=== PATIENT | male | born 1940 | race Caucasian/White ===

== ENCOUNTER 2018-06-26 11:00 | Inpatient (IN) ==
[2018-06-26] MEDS ORDERED: 0.9 % Sodium Chloride 1,000 ML IVC ONE (11:59)
[2018-06-26 12:03] LABS: Basophils % 0.4 %; Eosinophils # 0.2 K/mcL (0.0-0.6); Eosinophils % 2.3 %; Hemoglobin 13.3 g/dL (12.9-16.9); Immature Granulocytes % 0.4 % (0-4); Lymphocytes # 1.4 K/mcL (0.6-4.6); Lymphocytes % 14.8 %; Mean Corpuscular Hemoglobin 29.4 pg (28.0-33.3); Mean Corpuscular Volume 84.1 fL (83.0-100.0); Mean Platelet Volume 10.1 fL (9.4-12.4); Monocytes # 0.7 K/mcL (0.0-1.3); Monocytes % 7.8 %; Neutrophils # 6.8 K/mcL (1.6-8.9); Platelet Count 218 K/mcL (140-400); Red Blood Count 4.52 M/mcL (4.19-5.50); Red Cell Distribution Width 13.4 % (11.5-14.5); Segmented Neutrophils % 74.3 %
[2018-06-26 12:22] LABS: Albumin 3.8 g/dL (3.5-5.7); Albumin/Globulin Ratio 1.2 (1.1-2.2); Bilirubin,Total 0.5 mg/dL (0.3-1.0); Calcium 8.8 mg/dL (8.6-10.3); Globulin 3.1 g/dL (2.4-3.5); Potassium 2.6 mEq/L (3.5-5.1); Total Protein 6.9 g/dL (6.4-8.9)
--- NOTE | 2018-06-26 12:30 | Emergency Department Note ---
Disposition Clinical Impression: YOSELIN (acute kidney injury), Hypokalemia Diarrhea Qualifiers: Diarrhea type: unspecified type Qualified Code(s): R19.7 - Diarrhea, unspec ified Disposition: Admitted As Inpatient Condition: Good Referrals: Lashanda Martinez DO [Primary Care Provider] - Forms: ED Satisfaction Letter General Adult HPI - General Chief complaint: ED Recheck/Abnormal Lab/Rx Stated complaint: abnormal lab Time Seen by Provider: 06/26/18 11:11 Source: patient Mode of arrival: ambulatory Limitations: no limitations Nursing Notes Reviewed: Yes Vital Signs Reviewed: Yes - History of Present Illness HPI Narrative: Patient presenting for evaluation of abnormal labs. Patient has had he describes as diarrhea 10-15 episodes daily without blood for the last 3 weeks. Patient has not had any associated focal abdominal pain. Describes intermittent cramping. The patient was seen by his PCP and treated conservatively. Patient with continued symptoms and lab work. Lab work shows worsening see Marianne with associated hypokalemia of 2.6. At this time the patient denies chest pain, shortness of breath, syncope. Patient does have lightheadedness with standing up. Pain Scale: 0 - Related Data Home Medications Medication Instructions Recorded Confirmed Losartan/HCTZ [Hyzaar 50-12.5 1 each PO BID 12/20/15 12/17/16 Tablet] Tamsulosin [Flomax] 0.4 mg PO DAILY 12/20/15 12/17/16 Aspirin Enteric Coated [Aspirin EC] 81 mg PO DAILY 12/17/16 12/17/16 Carvedilol 3.125 mg PO DAILY 12/17/16 12/17/16 Previous Rx's Medication Instructions Recorded Folic Acid 1 tab PO DAILY #30 tablet 10/15/16 LORazepam [Ativan] 1 mg PO BID #60 tablet 12/17/16 Sertraline [Zoloft] 100 mg PO DAILY #30 tablet 12/17/16 Allergies Allergy/AdvReac Type Severity Reaction Status Date / Time No Known Allergies Allergy Verified 12/17/16 09:57 All systems ED: reviewed and negative except as stated. Review of Systems: As Per HPI Constitutional: Reports: weakness (Generalized). Denies: fever, chills Cardiovascular: Denies: chest pain, palpitations Respiratory: Denies: cough, dyspnea Gastrointestinal: Reports: abdominal pain (Cramping), diarrhea. Denies: nausea, vomiting Genitourinary: Denies: urgency, dysuria Musculoskeletal: Denies: back pain Endocrine: Reports: fatigue Past Medical History - Past Medical History Medical history: Reports: cancer, hypertension Surgical history: Reports: cataract, cholecystectomy Psychiatric history: Reports: anxiety, depression - Social History Smoking Status: Never smoker Smokeless Tobacco Status: No Alcohol use: Reports: none Physical Exam General: Well appearing, nontoxic, no acute distress Head: Normocephalic Atraumatic Eyes: PERRL, EOMI ENT: Airway patent, no stridor Neck: supple, no meningismus Chest: Lungs clear to auscultation bilateral Cardiac: Regular rate and rhythm, no murmurs, rubs or gallops Abdomen: soft, nontender, nondistended; no guarding, rebound, or tenderness to percussion Musculoskeletal: Calves symmetric, nontender. Skin: No rash, normal skin tone. Neuro: Alert and Oriented to person, place, and time; No obvious focal deficit. Course - Reevaluation(s) Reevaluation #1: Patient with no significant EKG changes. Hypokalemia, a chaotic, fluids and potassium have been given. At this time given the patient's failed outpatient treatment and need for continued further investigation. GI panel has been ordered. Patient will undergo continued left leg replacement as well as IV hydration and be admitted to the hospitalist service for further evaluation and management. - Consultations Consultation #1: Discussed with Dr. Barksdale. Patient accepted for admission. Vital Signs Temperature 97.4 F L 06/26/18 11:02 Pulse Rate 59 06/26/18 11:02 Respiratory Rate 16 06/26/18 11:02 Blood Pressure 131/73 06/26/18 11:02 O2 Sat by Pulse Oximetry 100 06/26/18 11:02 Temperature 97.4 F L 06/26/18 11:02 Pulse Rate 51 06/26/18 12:30 Respiratory Rate 16 06/26/18 12:30 Blood Pressure 114/63 06/26/18 12:30 O2 Sat by Pulse Oximetry 96 06/26/18 11:17 Oxygen Delivery Oxygen Delivery Room Air Medical Decision Making - Lab Data Result diagrams: 06/26/18 11:52 06/26/18 11:52 Lab Results 06/26/18 06/26/18 Range/Units 11:52 11:52 WBC 9.1 (4.3-11.1) K/mcL RBC 4.52 (4.19-5.50) M/mcL Hgb 13.3 (12.9-16.9) g/dL Hct 38.0 (37.5-50.1) % MCV 84.1 (83.0-100.0) fL MCH 29.4 (28.0-33.3) pg MCHC 35.0 (31.6-35.5) g/dL RDW 13.4 (11.5-14.5) % Plt Count 218 (140-400) K/mcL MPV 10.1 (9.4-12.4) fL Immature Gran % 0.4 (0-4) % Seg Neutrophils % 74.3 % Lymphocytes % 14.8 % Monocytes % 7.8 % Eosinophils % 2.3 % Basophils % 0.4 % Neutrophils # 6.8 (1.6-8.9) K/mcL Lymphocytes # 1.4 (0.6-4.6) K/mcL Monocytes # 0.7 (0.0-1.3) K/mcL Eosinophils # 0.2 (0.0-0.6) K/mcL Basophils # 0.0 (0.0-0.2) K/mcL Sodium 137 (136-145) mEq/L Potassium 2.6 L (3.5-5.1) mEq/L Chloride 110 H (98-107) mEq/L Carbon Dioxide 24 (23-29) mEq/L BUN 50 H (8-23) mg/dL Creatinine 2.34 H (0.70-1.30) mg/dL Est GFR ( Amer) 33 L (> 60) Est GFR (Non-Af Amer) 27 L (> 60) BUN/Creatinine Ratio 21 (6-26) Glucose 100 (70-105) mg/dL Calculated Osmolality 297 (280-300) Calcium 8.8 (8.6-10.3) mg/dL Total Bilirubin 0.5 (0.3-1.0) mg/dL AST 11 L (13-39) Units/L ALT 7 (7-52) Units/L Alkaline Phosphatase 71 (34-104) Units/L Serum Total Protein 6.9 (6.4-8.9) g/dL Albumin 3.8 (3.5-5.7) g/dL Globulin 3.1 (2.4-3.5) g/dL Albumin/Globulin Ratio 1.2 (1.1-2.2)
--- NOTE | 2018-06-26 13:47 | Internal Med History&Physical ---
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 Patient reports of having diarrhea for approximately 3 weeks and was seen by primary care provider for evaluation who obtained labs. Patient was found to be hypokalemic and was directed to the ER for further evaluation. In the ER, patient was found to have a potassium 2.6 with a creatinine of 2.34 (baseline approximately 1.5). Stool cultures were obtained from the ER and patient was given 40 mEq of potassium chloride by mouth in addition to a liter of fluid intravenously. Patient will be admitted to the observation unit for hypokalemia and acute on chronic renal disease secondary to dehydration from diarrhea. Past Med Surg Social Fam HX - Past Medical History Medical history: cancer, hypertension Additional medical history: CKD, melanoma Psychiatric history: anxiety, depression - Past Surgical History Surgical History: cataract, cholecystectomy Additional surgical history: PEG, PEG removal, hroat ca sx, L arm surgery - Social History Smoking Status: Never smoker Smokeless Tobacco Status: No Alcohol use: none - Additional Family History Additional family history: Sister: Colon cancer. Mom: Pancreatic cancer Internal Medicine - H&P: Meds Losartan/HCTZ [Hyzaar 50-12.5 Tablet] 1 each PO BID 12/20/15 [History] Tamsulosin [Flomax] 0.4 mg PO DAILY 12/20/15 [History] Folic Acid 1 tab PO DAILY #30 tablet 10/15/16 [Rx] Aspirin Enteric Coated [Aspirin EC] 81 mg PO DAILY 12/17/16 [History] Carvedilol 3.125 mg PO DAILY 12/17/16 [History] LORazepam [Ativan] 1 mg PO BID #60 tablet 12/17/16 [Rx] Sertraline [Zoloft] 100 mg PO DAILY #30 tablet 12/17/16 [Rx] Allergy/AdvReac Type Severity Reaction Status Date / Time No Known Allergies Allergy Verified 12/17/16 09:57 All Systems PM: A 10-system review of systems was performed and is negative for pertinent findings except as documented above in the HPI. - Constitutional Vitals: Temp Pulse Resp BP Pulse Ox 97.4 F L 86 16 124/58 96 06/26/18 11:02 06/26/18 13:38 06/26/18 13:38 06/26/18 13:38 06/26/18 13:38 General appearance: Present: A&O X 3, no acute distress Exam: As above - Head Head exam: Present: normocephalic - Eye Eye exam: Present: normal appearance - ENT ENT exam: Present: mucous membranes moist - Respiratory Respiratory exam: Present: CTAB. Absent: accessory muscle use, rales, rhonchi, wheezes - Cardiovascular Cardiovascular exam: Present: RRR, +S1, +S2. Absent: diastolic murmur, gallop, rubs, systolic murmur - GI/Abdominal GI/Abdominal exam: Present: normal bowel sounds, soft, no peritoneal signs. Absent: distended, tenderness - Extremities Exam Extremities exam: Absent: pedal edema - Neurological Exam Neurological exam: Present: oriented X3 - Psychiatric Psychiatric exam: Present: normal mood - Skin Skin exam: Present: normal color Internal Med - H&P Results - Labs CBC & Chem 7: 06/26/18 11:52 06/26/18 11:52 Labs: Short CBC 06/26/18 Range/Units 11:52 WBC 9.1 (4.3-11.1) K/mcL Hgb 13.3 (12.9-16.9) g/dL Hct 38.0 (37.5-50.1) % Plt Count 218 (140-400) K/mcL Neutrophils # 6.8 (1.6-8.9) K/mcL BMP 06/26/18 11:52 Sodium 137 Potassium 2.6 L Chloride 110 H Carbon Dioxide 24 BUN 50 H Creatinine 2.34 H Glucose 100 Calcium 8.8 Liver Function 06/26/18 Range/Units 11:52 Total Bilirubin 0.5 (0.3-1.0) mg/dL AST 11 L (13-39) Units/L ALT 7 (7-52) Units/L Alkaline Phosphatase 71 (34-104) Units/L Albumin 3.8 (3.5-5.7) g/dL - Assessment and plan (1) Hypokalemia Current Visit: Yes Status: Acute Assessment and plan: In the ER, patient was found to have a potassium 2.6. Will give patient a K rider and recheck potassium early evening (2) Diarrhea Current Visit: Yes Status: Acute Assessment and plan: Patient reports a three-week history of diarrhea. Stool cultures ordered in the ER and pending Qualifiers: Diarrhea type: unspecified type Qualified Code(s): R19.7 - Diarrhea, unspecified (3) Acute kidney injury superimposed on CKD Current Visit: Yes Status: Acute Assessment and plan: In the ER, patient was found to have a creatinine of 2.34 (baseline approximately 1.5). Will continue IV fluids and reevaluate creatinine in the a.m. 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
[2018-06-26] MEDS ORDERED: Naloxone 0.4 MG/ML INJ IVP PRN (13:58)
[2018-06-26] MEDS ORDERED: Potassium Chloride 40 MEQ, Lidocaine 1% 2 ML in D5% in Water 500 ML IVPB ONE (14:13)
[2018-06-26] MEDS: 0.9 % Sodium Chloride 1,000 ML IVC SCH (15:06)
[2018-06-26 18:05] LABS: C.difficile Toxin A/B Gene PCR Not detected (Not detect); Campylobacter by PCR Not detected (Not detect); Plesiomonas shigelloides PCR Not detected (Not detect); Salmonella PCR Not detected (Not detect); Vibrio PCR Not detected (Not detect)
[2018-06-26 18:06] LABS: Adenovirus F 40/41 PCR Not detected (Not detect); Astrovirus PCR Not detected (Not detect); Cryptosporidium by PCR Not detected (Not detect); Cyclospora cayetanensis PCR Not detected (Not detect); E. coli O157 by PCR Not detected (Not detect); Entamoeba histolytica PCR Not detected (Not detect); Enteroaggregative E.coli(EAEC) Not detected (Not detect); Enteropathogenic E.coli(EPEC) Not detected (Not detect); Enterotoxigenic E.coli (ETEC) Not detected (Not detect); Giardia lamblia PCR Not detected (Not detect); Norovirus GI/GII PCR Not detected (Not detect); Rotavirus A PCR Not detected (Not detect); Sapovirus PCR Not detected (Not detect); Shig/EnteroinvasiveE coli EIEC Not detected (Not detect); Shigalike tox-prod E coli STEC Not detected (Not detect); Vibrio cholerae PCR Not detected (Not detect); Yersinia enterocolitica PCR Not detected (Not detect)
[2018-06-27] MEDS: 0.9 % Sodium Chloride 1,000 ML IVC SCH (05:03)
[2018-06-27 05:33] LABS: Basophils % 0.4 %; Eosinophils # 0.2 K/mcL (0.0-0.6); Eosinophils % 2.7 %; Hematocrit 38.1 % (37.5-50.1); Hemoglobin 12.8 g/dL (12.9-16.9); Immature Granulocytes % 0.3 % (0-4); Lymphocytes # 1.6 K/mcL (0.6-4.6); Mean Corpuscular HGB Conc 33.6 g/dL (31.6-35.5); Mean Corpuscular Hemoglobin 28.8 pg (28.0-33.3); Mean Corpuscular Volume 85.6 fL (83.0-100.0); Monocytes # 0.7 K/mcL (0.0-1.3); Monocytes % 7.8 %; Neutrophils # 6.3 K/mcL (1.6-8.9); Platelet Count 231 K/mcL (140-400); Red Blood Count 4.45 M/mcL (4.19-5.50); Red Cell Distribution Width 13.5 % (11.5-14.5); Segmented Neutrophils % 70.8 %
[2018-06-27 06:01] LABS: Calcium 8.3 mg/dL (8.6-10.3); Potassium 2.9 mEq/L (3.5-5.1)
[2018-06-27] MEDS ORDERED: Potassium Chloride Elixir 20 MEQ/15 ML UDC PO ONE (08:18)
[2018-06-27] MEDS: *HR* LORazepam 1 MG TABLET PO SCH ×2 (09:38→20:09)
[2018-06-27] MEDS: Losartan/HCTZ 50-12.5 TABLET PO SCH ×2 (09:38→20:09)
[2018-06-27] MEDS: Aspirin Enteric Coated 81 MG Tablet PO SCH (09:39)
[2018-06-27] MEDS: Finasteride 5 MG TABLET PO SCH (09:39)
--- NOTE | 2018-06-27 11:32 | Internal Med Progress Note ---
<Manish Badillo - Last Filed: 06/27/18 14:14> Hospitalist Progress Note - Encounter Date of Encounter: 06/27/18 - Exam Vitals: Temp Pulse Resp BP Pulse Ox 97.7 F 59 16 120/48 96 06/27/18 11:14 06/27/18 11:14 06/27/18 11:14 06/27/18 11:14 06/27/18 11:14 - Assessment and Plan (1) Head and neck cancer Current Visit: No Status: Chronic (2) Diarrhea Current Visit: Yes Status: Acute (3) Hypokalemia Current Visit: Yes Status: Acute (4) Acute kidney injury superimposed on CKD Current Visit: Yes Status: Acute (5) DVT prophylaxis Current Visit: Yes Status: Acute - Time Spent with Patient Total time spent is greater than 50% in coordination of care (as documented) at patient's floor/unit and/or counseling patient: Internal Medicine: Result - Labs CBC & Chem 7: 06/27/18 04:48 06/27/18 04:48 Labs: Short CBC 06/27/18 Range/Units 04:48 WBC 8.9 (4.3-11.1) K/mcL Hgb 12.8 L (12.9-16.9) g/dL Hct 38.1 (37.5-50.1) % Plt Count 231 (140-400) K/mcL Neutrophils # 6.3 (1.6-8.9) K/mcL BMP 06/26/18 06/27/18 20:10 04:48 Sodium 141 Potassium 3.0 L 2.9 L Chloride 111 H Carbon Dioxide 22 L BUN 41 H Creatinine 1.91 H Glucose 97 Calcium 8.3 L Consult Discharge Plan - Plan Referrals: Lashanda Martinez DO [Primary Care Provider] - - Attending Attestation I examined this patient and my medical decision-making was reviewed with the Resident Physician Dr. Freedman. I agree with the documented findings, disposition and treatment plan as described except to the extent set forth below. Mr. 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 Patient has been having watery diarrhea from last couple of days. Denied any sick contacts. He is alert, awake and O x 3. Denied any muscle cramps. He still has diarrhea. Denied any abd pain. Gen: A, A, O x 3 Chest: Diminished BS b/l No crackles no rales Heart: S1S2 + RRR No murmurs a/p 1. Acute diarrhea 2. Severe hypokalemia and electrolyte abnormalities Improving C. 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 His potassium level at ED was 2.9 and creatinine 1.91. C- diff stool negative, stool for virus, parasite negative. Today during my visit the patient was lying on the bed, not in acute distress, well oriented to time place and person, vitals were stable. He admitted 7 episode of loses stool daily this morning. He also has had mild abdominal cramp, otherwise he appears comfortable. - Exam Vitals: Temp Pulse Resp BP Pulse Ox 97.7 F 59 16 120/48 96 06/27/18 11:14 06/27/18 11:14 06/27/18 11:14 06/27/18 11:14 06/27/18 11:14 Exam: Gen: Alert, awake , Oriented to time,place and person Chest: Diminished BS b/l, No crackles, No rales, No wheezing Heart: S1S2+ RRR No Murmurs Abd: Soft, NT, BS + No organomegaly Ext: No edema, pulses are palpable, no tenderness Neuro: No focal neuro deficits Psych: Normal mood Skin: No rash - Assessment and Plan (1) Diarrhea Current Visit: Yes Status: Acute Assessment and Plan: The patient was admitted for frequent episodes of loses stool for last 3 weeks, he has minimal abdominal cramping. Stool exam did not show any evidence of parasite or virus C. difficile negative. We have started oral hydration as well as IV hydration with potassium supplementation (2) Hypokalemia Current Visit: Yes Status: Acute Assessment and Plan: The patient has loses stool many times in a day for last several days and he has 7 episodes of loses stool yesterday. His serum potassium is 2.9, but he is not symptomatic for hypokalemia We have supplemented IV potassium 20 mEq with half-normal saline and oral potassium supplementation We have ordered serum potassium level and magnesium level again today, we will closely monitor his potassium level (3) Acute kidney injury superimposed on CKD Current Visit: Yes Status: Acute Assessment and Plan: The patient is chronic patient of kidney disease/CKD stage III, the patient has YOSELIN due to frequent diarrhoea His baseline serum creatinine is 1.5: The creatinine level was 2.34 daily during ED visit and it has come down to 1.91 today. 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 diagnosed 2008 - Time Spent with Patient Total time spent is greater than 50% in coordination of care (as documented) at patient's floor/unit and/or counseling patient: Internal Medicine: Result - Labs CBC & Chem 7: 06/27/18 04:48 06/27/18 04:48 Labs: Short CBC 06/26/18 06/27/18 Range/Units 11:52 04:48 WBC 9.1 8.9 (4.3-11.1) K/mcL Hgb 13.3 12.8 L (12.9-16.9) g/dL Hct 38.0 38.1 (37.5-50.1) % Plt Count 218 231 (140-400) K/mcL Neutrophils # 6.8 6.3 (1.6-8.9) K/mcL BMP 06/26/18 06/26/18 06/27/18 11:52 20:10 04:48 Sodium 137 141 Potassium 2.6 L 3.0 L 2.9 L Chloride 110 H 111 H Carbon Dioxide 24 22 L BUN 50 H 41 H Creatinine 2.34 H 1.91 H Glucose 100 97 Calcium 8.8 8.3 L Liver Function 06/26/18 Range/Units 11:52 Total Bilirubin 0.5 (0.3-1.0) mg/dL AST 11 L (13-39) Units/L ALT 7 (7-52) Units/L Alkaline Phosphatase 71 (34-104) Units/L Albumin 3.8 (3.5-5.7) g/dL <Manish Badillo - Last Filed: 06/27/18 14:14> (2) Diarrhea Qualifiers: Diarrhea type: unspecified type Qualified Code(s): R19.7 - Diarrhea, unspecified <Ragini Freedamn - Last Filed: 06/27/18 15:06> (1) Diarrhea Qualifiers: Diarrhea type: unspecified type Qualified Code(s): R19.7 - Diarrhea, unspecified
[2018-06-27] MEDS: 0.45 % Sodium Chloride w/KCl 20 MEQ/1,000 ML MLS IVC SCH ×2 (12:41→22:13)
[2018-06-27 15:34] LABS: Calcium 8.3 mg/dL (8.6-10.3); Potassium 3.3 mEq/L (3.5-5.1)
--- NOTE | 2018-06-27 18:05 | Electrocardiograph Report ---
[address] [address] Test Date: 2018-06-26 Pat Name: Severiano Pastrana Department: EXAM5 Room: 3B11 Gender: M Nuclear Medical Technologist: : 1940 Requested By: Jet Siu Order Number: [id number] Reading MD: Nidia Raya Measurements Intervals [place] Rate: 51 P: 20 ID: [id number] QRS: 6 QRSD: 119 T: 51 QT: 445 QTc: 410 Interpretive Statements Sinus rhythm with first degree AV block Nonspecific intraventricular conduction delay Electronically Signed On 06-27-2018 18:03:47 EST by Nidia Raya
[2018-06-27] MEDS: *HR* Heparin 5,000 UNIT/ML VIAL SQ SCH (18:47)
[2018-06-28 04:13] LABS: Calcium 7.9 mg/dL (8.6-10.3); Potassium 3.1 mEq/L (3.5-5.1)
[2018-06-28] MEDS: *HR* Heparin 5,000 UNIT/ML VIAL SQ SCH (06:08)
[2018-06-28] MEDS: Losartan/HCTZ 50-12.5 TABLET PO SCH (07:30)
[2018-06-28] MEDS: Finasteride 5 MG TABLET PO SCH (07:31)
[2018-06-28] MEDS: Aspirin Enteric Coated 81 MG Tablet PO SCH (07:31)
[2018-06-28] MEDS: *HR* LORazepam 1 MG TABLET PO SCH (07:31)
[2018-06-28] MEDS ORDERED: 0.45 % Sodium Chloride w/KCl 20 MEQ/1,000 ML MLS IVC SCH (07:45)
[2018-06-28] MEDS: 0.45 % Sodium Chloride w/KCl 20 MEQ/1,000 ML MLS IVC SCH (08:30)
--- NOTE | 2018-06-28 10:07 | Discharge Summary ---
<Ragini Freedman P - Last Filed: 06/28/18 13:19> - NOTES TO OUTPATIENT PROVIDER Notes to Outpatient Provider: *The patient will follow up with primary care provider within a week. *The patient will take potassium oral x 20 meq BID for 5 days (as supplement ). *The patient will check BMP and Magnesium level in 3 days and follow-up the report with primary care provider Orders not resulted at time of discharge: Pending orders 06/26/18 14:52 Ova & Parasite Exam Stat 06/27/18 10:49 Magnesium Routine Date of Encounter: 06/28/18 Time of Encounter: 09:15 - Discharge Diagnosis (1) Diarrhea Priority: Primary Status: Acute Qualifiers: Diarrhea type: unspecified type Qualified Code(s): R19.7 - Diarrhea, unspecified (2) Hypokalemia Priority: Primary Status: Acute (3) Acute kidney injury superimposed on CKD Priority: Primary Status: Acute (4) DVT prophylaxis Priority: Primary Status: Suspected (5) Head and neck cancer Priority: Secondary Status: Chronic Hospital course: Mr. 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 His potassium level at ED was 2.9 and creatinine 1.91. C- diff test was negative, stool for virus, parasite was negative. We admitted him in inpatient for further monitoring and workup. He was given IV and oral potassium supplement and magnesium supplement with IV hydration. Patient has been progressively improving since admission. His BUN and creatinine has been trending down and serum potassium level increased from 2.9 to 3.3, he does not have any sign of dehydration now. Patient is sympto matically better and hemodynamically stable. we are planning to discharge him today and he will follow-up with his primary care provider within a week. We have advised him to take potassium supplement 20 mEq twice a day for 5 days and he will check BMP/potassium and magnesium level in 3 days and review his lab result with his primary care provider. - Time Spent with Patient Total time spent providing and/or coordinating discharge services: - Discharge Medications Prescriptions: RX: Potassium Citrate [Urocit-K] 20 meq PO BID 7 Days #14 tablet.er Home Medications: RX: Losartan/HCTZ [Hyzaar 50-12.5 Tablet] 1 each PO BID 12/20/15 [History] RX: Aspirin Enteric Coated [Aspirin EC] 81 mg PO DAILY 12/17/16 [History] RX: LORazepam [Ativan] 1 mg PO BID #60 tablet 12/17/16 [Rx] RX: Sertraline [Zoloft] 100 mg PO DAILY #30 tablet 12/17/16 [Rx] RX: Calcitriol [Rocaltrol] 0.25 mcg PO DAILY 06/26/18 [History] RX: Finasteride [Proscar] 5 mg PO DAILY 06/26/18 [History] RX: Tamsulosin [Flomax] 0.4 mg PO DAILY 06/26/18 [History] RX: Potassium Citrate [Urocit-K] 20 meq PO BID 7 Days #14 tablet.er 06/28/18 [Rx] Allergies/Adverse Reactions: Allergy/AdvReac Type Severity Reaction Status Date / Time No Known Allergies Allergy Verified 06/26/18 17:34 Date of admission: 06/27/18 14:39 Primary care physician: Oj Trujillo - Constitutional Vitals: Temp Pulse Resp BP Pulse Ox 97.5 F L 60 18 125/66 99 06/28/18 07:01 06/28/18 07:01 06/28/18 07:01 06/28/18 07:01 06/28/18 07:01 General appearance: Present: A&O X 3, pleasant, no acute distress, answers questions appropriately Exam: Gen: Alert, awake , Oriented to time,place and person, vitals : stable. Chest: Diminished BS b/l, No crackles, No rales, No wheezing Heart: S1S2+ RRR No Murmurs Abd: Soft, NT, BS + No organomegaly Ext: No edema, pulses are palpable, no tenderness Neuro: No focal neuro deficits Psych: Normal mood Skin: No rash - Patient Status Disposition: Home, Self-Care Condition: Good Functional capacity at discharge: uses cane/walker Overall status at discharge: patient is progressing back to baseline - Ambulatory Orders Ambulatory Orders: Basic Metabolic Panel [CHEM] Time Frame: 3 Days, Facility: [facility], Location: Lab Magnesium [CHEM] Time Frame: 3 Days, Facility: [facility], Location: Lab - Discharge Instructions Instructions: Potassium Citrate (By mouth), Acute Kidney Injury (DC), Hypokalemia (DC), Acute Diarrhea (GEN), Anxiety (DC) Follow Up With: Lashanda Martinez DO [Primary Care Provider] - (Appointment web requested.) - Diet and Activity Activity: resume usual activities as tolerated Diet: regular diet <Thallapaneni,Rambabu - Last Filed: 06/28/18 14:55> Orders not resulted at time of discharge: Pending orders 06/26/18 14:52 Ova & Parasite Exam Stat 06/27/18 10:49 Magnesium Routine Date of Encounter: 06/28/18 - Discharge Diagnosis (1) Head and neck cancer Status: Chronic (2) Diarrhea Status: Acute Qualifiers: Diarrhea type: unspecified type Qualified Code(s): R19.7 - Diarrhea, unspecified (3) Hypokalemia Status: Acute (4) Acute kidney injury superimposed on CKD Status: Acute (5) DVT prophylaxis Status: Suspected Hospital course: Mr. Pastrana is a 78 year old male - Time Spent with Patient Total time spent providing and/or coordinating discharge services: Date of admission: 06/27/18 14:39 Primary care physician: Oj Trujillo - Constitutional Vitals: Temp Pulse Resp BP Pulse Ox 97.5 F L 62 16 161/68 100 06/28/18 10:58 06/28/18 10:58 06/28/18 10:58 06/28/18 10:58 06/28/18 10:58 - Attending Attestation I examined this patient and my medical decision-making was reviewed with the Resident Physician Dr. Freedman. I agree with the documented findings, disposition and treatment plan as described except to the extent set forth below. Mr. 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 Patient has been having watery diarrhea from last couple of days. Denied any sick contacts. He is alert, awake and O x 3. Denied any muscle cramps. Denied any abd pain. He still has diarrhea , however its better now. Gen: A, A, O x 3 Chest: Diminished BS b/l No crackles no rales Heart: S1S2 + RRR No murmurs a/p 1. Acute diarrhea 2. Severe hypokalemia and electrolyte abnormalities Improving C. Diff - negative GI Panel - Negative Mostly viral etiology / gastroenteritis continue symptomatic and supportive care Improving K+ Replaced K+ and Mg++ Medically stable to d/c home today Recommend to f/u with PCP and Lab work in 2 days.
[2018-06-28 10:59] VITALS: BP 161/68
[2018-06-28] MEDS ORDERED: Magnesium Oxide 400 MG TABLET PO ONE (11:09)
[2018-06-29 09:59] LABS: Magnesium 1.6 mg/dL (1.6-2.6)
[2018-06-29 14:41] LABS: Ova & Parasite Stain NEGATIVE (Negative)
== END 2018-06-28 13:29 | disposition home or self-care (01) | DRG 641 ==
LOC: EMEROOARM 11:00 → 3BNU 11:00 → SUATTDRO 13:12 → 3BNU 14:00
PROVIDERS: ADMIT Hospitalist; ATTEND Family Medicine

== ENCOUNTER 2020-01-30 10:44 | Inpatient (IN) ==
[2020-01-30] MEDS ORDERED: 0.9 % Sodium Chloride 1,000 ML IVC ONE (12:01)
[2020-01-30 12:32] LABS: Bilirubin,Urine Negative (Negative); Blood,Urine Negative (Negative); Clarity,Urine Clear (Clear); Color,Urine Light-Yellow (Yellow); Glucose,Urine (UA) Normal (Normal); Ketones,Urine Negative (Negative); Leukocyte Esterase,Urine Negative (Negative); Nitrite,Urine Negative (Negative); PH,Urine 5.5 pH Units (5.0-8.0); Protein,Urine Negative (Neg-Trace); Specific Gravity,Urine 1.016 (1.010-1.025); Urobilinogen,Urine Normal (Normal)
[2020-01-30 13:11] LABS: Prothrombin Time 11.6 Seconds (9.4-12.1)
[2020-01-30 13:14] LABS: Activated Partial Thrombo Time 28.8 Seconds (26.0-36.0); Basophils % 0.3 %; Eosinophils % 0.2 %; Hemoglobin 13.1 g/dL (12.9-16.9); Immature Granulocytes % 0.5 % (0-4); Lymphocytes # 0.8 K/mcL (0.6-4.6); Lymphocytes % 8.2 %; Mean Corpuscular HGB Conc 32.8 g/dL (31.6-35.5); Mean Corpuscular Hemoglobin 29.2 pg (28.0-33.3); Mean Corpuscular Volume 89.1 fL (83.0-100.0); Mean Platelet Volume 10.1 fL (9.4-12.4); Monocytes # 0.5 K/mcL (0.0-1.3); Monocytes % 5.6 %; Neutrophils # 8.1 K/mcL (1.6-8.9); Platelet Count 171 K/mcL (140-400); Red Blood Count 4.49 M/mcL (4.19-5.50); Red Cell Distribution Width 13.1 % (11.5-14.5); Segmented Neutrophils % 85.2 %; White Blood Count 9.5 K/mcL (4.3-11.1)
[2020-01-30 13:29] LABS: Alanine Aminotransferase 14 Units/L (7-52); Albumin 4.1 g/dL (3.5-5.7); Albumin/Globulin Ratio 1.4 (1.1-2.2); Alkaline Phosphatase 73 Units/L (34-104); Aspartate Amino Transferase 19 Units/L (13-39); BUN/Creatinine Ratio 24 (6-26); Bilirubin,Total 0.6 mg/dL (0.3-1.0); Blood Urea Nitrogen 38 mg/dL (8-23); Calcium 9.2 mg/dL (8.6-10.3); Carbon Dioxide 27 mEq/L (23-29); Chloride 103 mEq/L (98-107); Glucose 124 mg/dL (70-105); Osmolality,Calculated 294 (280-300); Potassium 4.1 mEq/L (3.5-5.1); Sodium 137 mEq/L (136-145); Total Protein 7.1 g/dL (6.4-8.9); Troponin I < 0.03 ng/mL (< 0.04); eGFR For African Americans 51 (> 60); eGFR For Non-African Americans 42 (> 60)
[2020-01-30] MEDS ORDERED: *HR* LORazepam 1 MG TABLET PO ONE (13:57)
[2020-01-30] MEDS ORDERED: Acetaminophen 325 MG TABLET PO PRN (14:49)
[2020-01-30] MEDS ORDERED: Naloxone 0.4 MG/ML INJ IVP PRN (16:18)
[2020-01-30 16:41] LABS: Magnesium 1.7 mg/dL (1.6-2.6); Phosphorous 3.2 mg/dL (2.7-4.5)
[2020-01-30] MEDS ORDERED: 0.9 % Sodium Chloride 1,000 ML IVC SCH (17:15)
[2020-01-31 05:18] LABS: Basophils % 0.3 %; Eosinophils # 0.2 K/mcL (0.0-0.6); Eosinophils % 3.4 %; Hematocrit 38.1 % (37.5-50.1); Hemoglobin 12.9 g/dL (12.9-16.9); Immature Granulocytes % 0.4 % (0-4); Lymphocytes % 13.6 %; Mean Corpuscular HGB Conc 33.9 g/dL (31.6-35.5); Mean Corpuscular Hemoglobin 30.5 pg (28.0-33.3); Mean Corpuscular Volume 90.1 fL (83.0-100.0); Mean Platelet Volume 9.6 fL (9.4-12.4); Monocytes # 0.8 K/mcL (0.0-1.3); Platelet Count 145 K/mcL (140-400); Red Blood Count 4.23 M/mcL (4.19-5.50); Red Cell Distribution Width 13.2 % (11.5-14.5); Segmented Neutrophils % 71.3 %; White Blood Count 7.1 K/mcL (4.3-11.1)
[2020-01-31 05:38] LABS: Calcium 8.5 mg/dL (8.6-10.3); Potassium 3.9 mEq/L (3.5-5.1)
[2020-01-31] MEDS ORDERED: Isovue-300 50ML VIAL ONE (08:17)
[2020-01-31] MEDS ORDERED: Lidocaine -MPF 2% 2 ML VIAL ONE (08:19)
[2020-01-31] MEDS ORDERED: *HR* Propofol 200 MG/20 ML VIAL IVP ONE (08:19)
[2020-01-31] MEDS ORDERED: *HR* Midazolam HCl 2 MG/2 ML VIAL ONE (08:19)
[2020-01-31] MEDS ORDERED: Ondansetron 4 MG/2 ML VIAL ONE (08:19)
[2020-01-31] MEDS ORDERED: Dexamethasone 4 MG/ML VIAL ONE (08:19)
[2020-01-31] MEDS ORDERED: *HR* FentaNYL (PF) 100 MCG/2 ML VIAL ONE (08:19)
[2020-01-31] MEDS ORDERED: *HR* Succinylcholine 200 MG/10 ML VIAL IVP ONE (08:21)
[2020-01-31] MEDS ORDERED: *HR* Rocuronium Bromide 50 MG/5 ML VIAL ONE (08:21)
[2020-01-31] MEDS ORDERED: Lidocaine -MPF 4% 5 ML AMPUL ONE (08:21)
[2020-01-31] MEDS ORDERED: Famotidine 20 MG/2 ML VIAL IVP ONE (08:29)
[2020-01-31] MEDS ORDERED: Acetaminophen IV 1,000 MG/100 ML INFUS..BTL IVPB ONE (08:29)
[2020-01-31] MEDS ORDERED: Ondansetron 4 MG/2 ML VIAL IVP ONE (08:31)
[2020-01-31] MEDS ORDERED: Morphine Sulfate 2 MG/ML SYRINGE IVP PRN (08:31)
[2020-01-31] MEDS ORDERED: *HR* OxyCODONE Immed Rel 5 MG TABLET PO PRN (08:31)
[2020-01-31] MEDS ORDERED: EPHEDrine 50 MG/ML VIAL ONE (09:11)
[2020-01-31] MEDS ORDERED: *HR* PHENYLEPHRINE 1,000 MCG/10 ML SYRINGE IVP ONE (09:14)
[2020-01-31] MEDS ORDERED: Ringers Solution, Lactated 1,000 ML IVC SCH (10:41)
[2020-01-31] MEDS ORDERED: Ondansetron 4 MG/2 ML VIAL IVP PRN (10:41)
[2020-01-31] MEDS: *HR* OxyCODONE Immed Rel 5 MG TABLET PO PRN ×2 (16:16→21:37)
[2020-01-31] MEDS: CeFAZolin 2 GM/120 ML BAG IVPB SCH (18:12)
[2020-01-31] MEDS ORDERED: *HR* LORazepam 1 MG TABLET PO SCH (21:00)
[2020-01-31] MEDS: Losartan/HCTZ 50-12.5 TABLET PO SCH (23:48)
[2020-02-01] MEDS: CeFAZolin 2 GM/120 ML BAG IVPB SCH (00:32)
[2020-02-01] MEDS: *HR* OxyCODONE Immed Rel 5 MG TABLET PO PRN ×3 (01:48→19:51)
[2020-02-01 06:26] LABS: Basophils % 0.4 %; Eosinophils # 0.1 K/mcL (0.0-0.6); Eosinophils % 1.5 %; Hematocrit 37.3 % (37.5-50.1); Hemoglobin 12.1 g/dL (12.9-16.9); Immature Granulocytes % 0.6 % (0-4); Lymphocytes # 0.8 K/mcL (0.6-4.6); Lymphocytes % 10.2 %; Mean Corpuscular HGB Conc 32.4 g/dL (31.6-35.5); Mean Corpuscular Volume 92.3 fL (83.0-100.0); Mean Platelet Volume 10.1 fL (9.4-12.4); Monocytes # 0.8 K/mcL (0.0-1.3); Monocytes % 9.3 %; Neutrophils # 6.4 K/mcL (1.6-8.9); Platelet Count 148 K/mcL (140-400); Red Blood Count 4.04 M/mcL (4.19-5.50); Red Cell Distribution Width 13.2 % (11.5-14.5); White Blood Count 8.2 K/mcL (4.3-11.1)
[2020-02-01 06:35] LABS: Calcium 8.4 mg/dL (8.6-10.3); Potassium 3.9 mEq/L (3.5-5.1)
[2020-02-01] MEDS: Losartan/HCTZ 50-12.5 TABLET PO SCH (07:45)
[2020-02-01] MEDS: calcitrioL 0.25 MCG CAPSULE PO SCH (07:45)
[2020-02-01] MEDS: Aspirin Enteric Coated 81 MG Tablet PO SCH (07:45)
[2020-02-01] MEDS ORDERED: Finasteride 5 MG TABLET PO SCH (09:00)
[2020-02-01] MEDS ORDERED: Losartan/HCTZ 50-12.5 TABLET PO SCH (09:00)
[2020-02-01] MEDS: Finasteride 5 MG TABLET PO SCH (15:52)
[2020-02-01 18:09] LABS: Clarity,Urine Slightly Hazy (Clear); Color,Urine Dark-Red (Yellow)
[2020-02-01 18:12] LABS: RBC,Urine TNTC per hpf (0-3); Squamous Epithelial Cell,Urine Few per hpf (None-Few)
[2020-02-01 18:13] LABS: WBC,Urine 30-50 per hpf (0-3)
[2020-02-01 18:14] LABS: Bacteria,Urine Few per hpf (None-Few)
[2020-02-01] MEDS ORDERED: *HR* LORazepam 1 MG TABLET PO PRN (19:18)
[2020-02-02 06:10] LABS: Basophils % 0.6 %; Eosinophils # 0.4 K/mcL (0.0-0.6); Eosinophils % 5.6 %; Hematocrit 36.7 % (37.5-50.1); Hemoglobin 11.9 g/dL (12.9-16.9); Immature Granulocytes % 0.5 % (0-4); Lymphocytes # 0.9 K/mcL (0.6-4.6); Lymphocytes % 13.8 %; Mean Corpuscular HGB Conc 32.4 g/dL (31.6-35.5); Mean Corpuscular Hemoglobin 29.3 pg (28.0-33.3); Mean Corpuscular Volume 90.4 fL (83.0-100.0); Mean Platelet Volume 10.1 fL (9.4-12.4); Monocytes # 0.8 K/mcL (0.0-1.3); Monocytes % 11.6 %; Neutrophils # 4.5 K/mcL (1.6-8.9); Platelet Count 158 K/mcL (140-400); Red Blood Count 4.06 M/mcL (4.19-5.50); Red Cell Distribution Width 13.3 % (11.5-14.5); Segmented Neutrophils % 67.9 %; White Blood Count 6.7 K/mcL (4.3-11.1)
[2020-02-02 06:25] LABS: Calcium 8.8 mg/dL (8.6-10.3)
[2020-02-02] MEDS: Aspirin Enteric Coated 81 MG Tablet PO SCH (08:20)
[2020-02-02] MEDS: Finasteride 5 MG TABLET PO SCH (08:21)
[2020-02-02] MEDS: calcitrioL 0.25 MCG CAPSULE PO SCH (08:21)
[2020-02-02] MEDS ORDERED: Sennosides/Docusate Sodium TABLET PO SCH (11:30)
[2020-02-02] MEDS ORDERED: 0.9 % Sodium Chloride 1,000 ML IVC SCH (11:45)
[2020-02-02] MEDS: *HR* OxyCODONE Immed Rel 5 MG TABLET PO PRN (15:05)
[2020-02-02 16:11] VITALS: BP 171/73
== END 2020-02-02 16:46 | disposition home or self-care (01) | DRG 478 ==
LOC: 3NENU 10:44 → EMEROOARM 10:44 → SUATTDRO 14:30 → 3NENU 14:59
PROVIDERS: ADMIT Internal Medicine; ATTEND Student in an Organized Health Care Education/Training Program